=== PATIENT | female | born 1975 | race Caucasian/White ===

== ENCOUNTER 2018-02-26 15:56 | Emergency (ER) | payer MEDICAID ==
[~2018-02-26] VITALS: Ht 157.5 cm; Wt 72.6 kg
[2018-02-26 16:07] VITALS: BP_SYST 63
[2018-02-26] MEDS ORDERED: NACL 0.9% 1,000 ML IV ONE (16:30)
[2018-02-26 16:51] LABS: BASOPHILS % (AUTO) 0.7 % (0.0-2.0); EOSINOPHILS % (AUTO) 0.2 % (0.0-4.0); HEMATOCRIT 41.5 % (36-48); HEMOGLOBIN 12.8 g/dL (12.0-16.0); LYMPHOCYTES # (AUTO) 1.1 K/uL (1.0-5.5); LYMPHOCYTES % (AUTO) 11.2 % (20.5-51.5); MEAN CORPUSCULAR HEMOGLOBIN 24 pg (27-31); MEAN CORPUSCULAR HGB CONC 31 % (32-36); MEAN CORPUSCULAR VOLUME 78 fL (79.0-98.0); MONOCYTES # (AUTO) 0.4 K/uL (0.0-1.0); MONOCYTES % (AUTO) 4.2 % (1.7-9.3); NEUTROPHILS # (AUTO) 8.1 K/uL (1.8-7.7); NEUTROPHILS % (AUTO) 83.7 % (40.0-70.0); PLATELET COUNT (AUTO) 461 K/uL (130-430); RED BLOOD CELL COUNT(AUTO) 5.35 MIL/uL (4.2-6.2); RED CELL DISTRIBUTION WIDTH 16.2 % (9.0-15.0); WHITE BLOOD COUNT (AUTO) 9.7 K/uL (4.8-10.8)
[2018-02-26 16:56] LABS: CALCIUM 9.7 mg/dL (8.4-11.0); CREATININE 1.02 mg/dL (0.55-1.30); POTASSIUM 3.2 mmol/L (3.5-5.1)
[2018-02-26 17:01] LABS: ALBUMIN 4.6 g/dL (3.4-4.8); TOTAL BILIRUBIN 0.9 mg/dL (0.0-1.0)
[2018-02-26 17:05] LABS: PROTHROMBIN TIME 9.9 SECS (9.5-12.5)
[2018-02-26 17:07] LABS: BASOPHILS # (AUTO) 0.1 K/uL (0.0-0.2)
[2018-02-26 18:34] VITALS: BP_SYST 136
== END 2018-02-26 18:34 | disposition home or self-care (01) ==
LOC: SED 15:56
DX: R53.1 Weakness (principal); J45.909 Unspecified asthma, uncomplicated; D64.9 Anemia, unspecified; D21.9 Benign neoplasm of connective and other soft tissue, unspecified
CPT/HCPCS: 36415; 71045; 80053; 81025; 82550-TC; 83880; 84484; 84703; 85025; 85610-TC; 85730-TC; 86886; 86900; 86901; 93005; 99285

== ENCOUNTER 2019-01-02 14:50 | Emergency (ER) | payer MEDICAID ==
[~2019-01-02] VITALS: Ht 160 cm; Wt 72.6 kg
[2019-01-02 14:55] VITALS: BP_SYST 149
--- NOTE | 2019-01-02 15:01 | NUR ---
Patient to ER bed 8 to gown for evaluation. Side rails up. Report given to Sarai MAHER.
--- NOTE | 2019-01-02 15:08 | NUR ---
JEANETTE Dooley examining patient.
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
[2019-01-02] MEDS ORDERED: DIPHENHYDRAMINE INJ 50 MG/ML VIAL IVP ONE (15:15)
[2019-01-02] MEDS ORDERED: FAMOTIDINE PF 20 MG/2 ML VIAL IVP ONE (15:15)
[2019-01-02] MEDS ORDERED: EPINEPHrine 1 MG/ML AMP SUBCUT ONE (15:15)
[2019-01-02] MEDS ORDERED: methylPREDNISolone SOD SUCC/PF 62.5 MG/ML VIAL IVP ONE (15:15)
[2019-01-02] MEDS ORDERED: NACL 0.9% 1,000 ML IV ONE (15:15)
--- NOTE | 2019-01-02 15:20 | NUR ---
# 20 gauge angiocath placed to RAC. Use of asceptic technique. Opsite placed over site. Blood return noted. Blood for lab drawn from site. Flushed with 10 cc of normal saline. No evidence of infiltration noted. Patient tolerated well.
[2019-01-02 16:40] VITALS: BP_SYST 132
--- NOTE | 2019-01-02 16:40 | NUR ---
Patient given written and verbal discharge instructions and verbalizes understanding. ER WAREHOUSE WORKER 2ND SHIFT Miah discussed with patient the results and treatment provided. Patient in stable condition. ID arm band removed. IV catheter removed intact and dressing applied, no active bleeding. Rx of Pepcid, Benadryl and Prednisone given. Patient educated on pain management and to follow up with PMD in 2- 3 days. Pain Scale 0/10 Opportunity for questions provided and answered. Medication side effect fact sheet provided.
== END 2019-01-02 16:40 | disposition home or self-care (01) ==
LOC: SED 14:50
DX: T78.40XA Allergy, unspecified, initial encounter (principal); R03.0 Elevated blood-pressure reading, without diagnosis of hypertension; J45.909 Unspecified asthma, uncomplicated; Z86.2 Personal history of diseases of the blood and blood-forming organs and certain disorders involving the immune mechanism; Y92.89 Other specified places as the place of occurrence of the external cause
CPT/HCPCS: 81025; 96372; 96374; 96375; 99283; J0171; J1200; J2930; J3490; J7030

== ENCOUNTER 2019-02-09 08:47 | Emergency (ER) | payer MEDICAID ==
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
== END 2019-02-09 10:05 | disposition left against medical advice (07) ==
LOC: SED 08:47
DX: Z53.21 Procedure and treatment not carried out due to patient leaving prior to being seen by health care provider (principal)

== ENCOUNTER 2020-04-20 09:22 | Emergency (ER) | payer MEDICAID ==
[~2020-04-20] VITALS: Ht 160 cm; Wt 86.2 kg
[2020-04-20 09:33] VITALS: BP_SYST 158
--- NOTE | 2020-04-20 09:45 | NUR ---
ER at bedside examining patient.
--- NOTE | 2020-04-20 09:45 | NUR ---
Patient to ER bed 4 to gown for evaluation. Side rails up.
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
--- NOTE | 2020-04-20 09:49 | NUR ---
Patient given written and verbal discharge instructions and verbalizes understanding. ER MD discussed with patient the results and treatment provided. Patient in stable condition. ID arm band removed. No RX given. Patient educated on pain management and to follow up with PMD. Pain Scale 0/10. Opportunity for questions provided and answered. Medication side effect fact sheet provided.
[2020-04-20 09:50] VITALS: BP_SYST 158
== END 2020-04-20 09:45 | disposition home or self-care (01) ==
LOC: SED 09:22
DX: S09.8XXA Other specified injuries of head, initial encounter (principal); J45.909 Unspecified asthma, uncomplicated; Z86.2 Personal history of diseases of the blood and blood-forming organs and certain disorders involving the immune mechanism; W22.8XXA Striking against or struck by other objects, initial encounter; Y93.89 Activity, other specified; Y92.89 Other specified places as the place of occurrence of the external cause; Y99.8 Other external cause status
CPT/HCPCS: 99281; 99291

== ENCOUNTER 2021-05-14 16:17 | Emergency (ER) | payer MEDICAID ==
[~2021-05-14] VITALS: Ht 157.5 cm; Wt 78.5 kg
[2021-05-14 16:22] VITALS: BP_SYST 168
[2021-05-14] MEDS: ASPIRIN 81 MG TAB.CHEW PO ONE (17:13)
[2021-05-14 17:28] LABS: BASOPHILS % (AUTO) 0.6 % (0.0-2.0); EOSINOPHILS # (AUTO) 0.1 K/uL (0.0-0.4); HEMATOCRIT 45.9 % (36-48); HEMOGLOBIN 15.4 g/dL (12.0-16.0); LYMPHOCYTES # (AUTO) 1.9 K/uL (1.0-5.5); LYMPHOCYTES % (AUTO) 32.4 % (20.5-51.5); MEAN CORPUSCULAR HEMOGLOBIN 29 pg (27-31); MEAN CORPUSCULAR HGB CONC 34 % (32-36); MEAN CORPUSCULAR VOLUME 88 fL (79.0-98.0); MONOCYTES # (AUTO) 0.3 K/uL (0.0-1.0); MONOCYTES % (AUTO) 5.4 % (1.7-9.3); NEUTROPHILS # (AUTO) 3.5 K/uL (1.8-7.7); NEUTROPHILS % (AUTO) 59.6 % (40.0-70.0); PLATELET COUNT (AUTO) 270 K/uL (130-430); RED BLOOD CELL COUNT(AUTO) 5.25 MIL/uL (4.2-6.2); RED CELL DISTRIBUTION WIDTH 14.5 % (9.0-15.0); WHITE BLOOD COUNT (AUTO) 5.8 K/uL (4.8-10.8)
[2021-05-14 17:34] LABS: CALCIUM 8.9 mg/dL (8.4-11.0); CREATININE 0.77 mg/dL (0.55-1.30); POTASSIUM 3.9 mmol/L (3.5-5.1)
[2021-05-14] MEDS: KETOROLAC TROMETHAMINE 60 MG/2 ML VIAL IM ONE (17:43)
[2021-05-14 17:47] LABS: ALBUMIN 3.9 g/dL (3.4-4.8); TOTAL BILIRUBIN 0.2 mg/dL (0.0-1.0)
[2021-05-14] MEDS: KETOROLAC TROMETHAMINE 30 MG VIAL IVP ONE (18:00)
[2021-05-14] MEDS ORDERED: HYDR25TA4 PO (19:36)
[2021-05-14 20:34] VITALS: BP_SYST 154
== END 2021-05-14 20:34 | disposition home or self-care (01) ==
LOC: SED 16:17
DX: R07.89 Other chest pain (principal); I10 Essential (primary) hypertension; J45.909 Unspecified asthma, uncomplicated; Z79.899 Other long term (current) drug therapy; Z20.822 Contact with and (suspected) exposure to COVID-19
CPT/HCPCS: 36415; 71045; 80053; 83880; 84484; 84702; 85025; 85379; 86710; 87426; 93005; 96374; 99285; J1885

== ENCOUNTER 2022-02-09 00:04 | Emergency (ER) | payer MEDICAID ==
[~2022-02-09] VITALS: Ht 162.6 cm; Wt 78.0 kg
[~2022-02-09 00:04] MED LIST: HYDR25TA4 PO
[2022-02-09 00:07] VITALS: BP_SYST 159
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
--- NOTE | 2022-02-09 01:14 | NUR ---
C- COLLAR PLACED, ICE PACKS PLACED ON BILATERAL KNEES AND RIGHT SHOULDER.
--- NOTE | 2022-02-09 01:40 | NUR ---
PATIENT TAKEN TO CT SCAN WITH OPERATIONS PLANNER.
[2022-02-09] MEDS ORDERED: ACETAMINOPHEN 500 MG TABLET PO ONE (02:00)
[2022-02-09] MEDS ORDERED: IBUPROFEN 600 MG TABLET PO ONE (03:15)
--- NOTE | 2022-02-09 03:58 | NUR ---
PATIENT TOLERATED I AND D PROCEDURE WELL.
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
[2022-02-09] MEDS ORDERED: CYCL10TA24 PO (04:35)
[2022-02-09] MEDS ORDERED: ACET12.55 PO (04:35)
[2022-02-09] MEDS ORDERED: NAPR-686 PO (04:35)
--- NOTE | 2022-02-09 05:00 | NUR ---
Patient given written and verbal discharge instructions and verbalizes understanding. ER MD discussed with patient the results and treatment provided. Patient in stable condition. ID arm band removed. Patient educated on pain management and to follow up with PMD. Pain Scale 3. Opportunity for questions provided and answered. Medication side effect fact sheet provided.
[2022-02-09 05:36] VITALS: BP_SYST 126
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
== END 2022-02-09 05:36 | disposition home or self-care (01) ==
LOC: SED 00:04
DX: S06.0X0A Concussion without loss of consciousness, initial encounter (principal); S83.91XA Sprain of unspecified site of right knee, initial encounter; S10.93XA Contusion of unspecified part of neck, initial encounter; Z79.899 Other long term (current) drug therapy; Y04.8XXA Assault by other bodily force, initial encounter; Y93.89 Activity, other specified; Y92.89 Other specified places as the place of occurrence of the external cause; Y99.8 Other external cause status
CPT/HCPCS: 70450-TC; 71045; 72125-TC; 76376; 81025; 99284